=== PATIENT | female | born 1980 | race Caucasian/White ===

== ENCOUNTER 2018-05-14 08:55 | Inpatient (IN) | payer MEDICAID, OTHER ==
[~2018-05-14 08:55] MED LIST: Bupivacaine/Epinephrine 0.25% 30 ML VIAL ONE
[2018-05-14 09:39] VITALS: BMI 32.3
[2018-05-14 09:55] LABS: Amnisure Internal Control QC ACCEPTABLE (ACCEPTABLE)
[2018-05-14 09:57] LABS: Amnisure Test RUPTURE DETECTED (No Rupture)
[2018-05-14] MEDS ORDERED: Misoprostol 200 MCG TAB PR PRN (10:13)
[2018-05-14] MEDS ORDERED: NS / Oxytocin 40 units/1000ml 1,000 ML IV PRN (10:13)
[2018-05-14] MEDS ORDERED: Promethazine HCl 25 MG/ML VIAL IM PRN ×2 (10:13→14:56)
[2018-05-14] MEDS ORDERED: Lidocaine 1% (PF) 30 ML VIAL SC PRN (10:13)
[2018-05-14] MEDS ORDERED: Butorphanol Tartrate 1 MG/ML VIAL SLOW IVP PRN (10:13)
[2018-05-14] MEDS ORDERED: Ondansetron PF 4 MG/2 ML Vial IVP PRN ×3 (10:13→17:35)
[2018-05-14] MEDS ORDERED: HYDROcodone/Acetaminophen 5/325 mg Tablet PO PRN ×2 (10:13)
[2018-05-14] MEDS ORDERED: Docusate 100 MG CAP PO PRN (10:13)
[2018-05-14] MEDS ORDERED: Ibuprofen 800 MG TAB PO PRN (10:13)
[2018-05-14] MEDS ORDERED: Diphenoxylate HCl/Atropine Tablet PO PRN ×2 (10:13)
[2018-05-14] MEDS ORDERED: Acetaminophen 500 MG TAB PO PRN (10:13)
[2018-05-14] MEDS: Lactated Ringer's 1,000 ML IV SCH ×2 (10:20→14:54)
[2018-05-14 10:35] LABS: Hemoglobin 13.1 g/dL (12.0-16.0); Mean Corpuscular HGB CONC 34.1 g/dL (32.0-36.0); Platelet Count 212 thou/uL (130-400); RBC Distribution Width 12.2 % (11.5-14.5); Red Blood Cell (RBC) Count 4.22 mill/uL (4.20-5.40); White Blood Cell (WBC) Count 11.4 thou/uL (4.8-10.8)
[2018-05-14 11:16] LABS: Syphilis Antibody Nonreactive (Nonreactive); Syphilis Antibody Index 0.04 S/CO (<1.00 Non-Reactive)
[2018-05-14 11:24] LABS: HBSAg Index 0.18 S/CO (0-0.99); Hep B Surf Ag Non-Reactive S/CO (NonReactive)
[2018-05-14] MEDS ORDERED: NS w/ Oxytocin 10 units 500 ML ONE (13:30)
[2018-05-14] MEDS ORDERED: Fentanyl 4 mcg/Bup 0.1% Cadd 100 ML ONE (13:58)
[2018-05-14] MEDS ORDERED: ePHEDrine/0.9% NaCl/PF SYRINGE 50 mg/10 ml SLOW IVP PRN (14:56)
[2018-05-14] MEDS ORDERED: Eucerin (Mineral Oil/Petrolatum,White) 30 gm Jar TOP PRN (14:56)
[2018-05-14] MEDS ORDERED: Lactated Ringer's 500 ML IV PRN (14:56)
[2018-05-14] MEDS ORDERED: Acetaminophen 325 MG TAB PO PRN (14:56)
[2018-05-14] MEDS ORDERED: Naloxone HCl 0.4 mg/ml Vial IVP PRN ×2 (14:56)
[2018-05-14] MEDS ORDERED: diphenhydrAMINE 50 MG/ML VIAL IVP PRN (14:56)
[2018-05-14] MEDS ORDERED: Fentanyl 4 mcg/Bupivacaine 0.1% Cassette 100 ML EPIDURAL SCH (15:00)
[2018-05-14] MEDS ORDERED: Communication Order-Pharmacy FS SCH (15:00)
[2018-05-14] MEDS ORDERED: hydrALAZINE 20 MG/ML VIAL ONE (15:20)
[2018-05-14] MEDS: NS / Oxytocin 40 units/1000ml 1,000 ML IV SCH ×2 (17:05→18:34)
[2018-05-14] MEDS ORDERED: Lanolin Ointment 7 GM TUBE TOP PRN (17:35)
[2018-05-14] MEDS ORDERED: Benzocaine/Menthol 20-0.5% 60 ML CAN TOP PRN (17:35)
[2018-05-14] MEDS ORDERED: Preparation H Ointment 28 GM TUBE PR PRN (17:35)
[2018-05-14] MEDS ORDERED: diphenhydrAMINE 25 MG CAP PO PRN (17:35)
[2018-05-14] MEDS ORDERED: Zolpidem Tartrate 5 MG TAB PO PRN (17:35)
[2018-05-14] MEDS ORDERED: Misoprostol 200 MCG TAB VAG PRN (17:35)
[2018-05-14] MEDS ORDERED: Milk Of Magnesia 30 ML UDCUP PO PRN (17:35)
[2018-05-14] MEDS ORDERED: Acetaminophen/Codeine 30-300mg Tablet PO PRN ×2 (17:35)
[2018-05-14] MEDS ORDERED: Bisacodyl 10 MG SUPP PR PRN (17:35)
[2018-05-14] MEDS: Ampicillin/Sulbactam 3 GM in Sodium Chloride 0.9% 100 ML IVPB SCH (18:45)
[2018-05-14] MEDS ORDERED: Acetaminophen 325 MG TAB PO SCH (20:15)
[2018-05-14] MEDS: Labetalol 100 MG TAB PO SCH (21:18)
[2018-05-14] MEDS: Docusate Calcium (SURFAK) 240 MG CAP PO SCH (21:19)
[2018-05-14] MEDS: Ibuprofen 800 MG TAB PO SCH (21:20)
[2018-05-15] MEDS: Ampicillin/Sulbactam 3 GM in Sodium Chloride 0.9% 100 ML IVPB SCH (00:30)
[2018-05-15] MEDS ORDERED: Sodium Chloride 0.9% 10 ML ONE (04:32)
[2018-05-15] MEDS: Ibuprofen 800 MG TAB PO SCH ×2 (05:01→13:22)
[2018-05-15 06:59] LABS: Hemoglobin 10.8 g/dL (12.0-16.0); Mean Corpuscular HGB CONC 33.3 g/dL (32.0-36.0); Mean Corpuscular Hemoglobin 30.9 pg (27.0-31.0); Mean Corpuscular Volume 92.7 fL (78.0-98.0); Mean Platelet Volume 9.1 fL (7.4-10.4); Platelet Count 188 thou/uL (130-400); RBC Distribution Width 12.2 % (11.5-14.5); Red Blood Cell (RBC) Count 3.49 mill/uL (4.20-5.40); White Blood Cell (WBC) Count 12.3 thou/uL (4.8-10.8)
[2018-05-15] MEDS ORDERED: Prenatal Vitamin 1 TAB PO SCH (09:00)
[2018-05-15] MEDS ORDERED: Adacel (T-DAP) 0.5 ML SYRINGE IM ONE (09:00)
[2018-05-15] MEDS: Labetalol 100 MG TAB PO SCH (09:42)
[2018-05-15] MEDS: Docusate Calcium (SURFAK) 240 MG CAP PO SCH (09:42)
[2018-05-15] MEDS: Ferrous Sulfate 325 MG TAB PO SCH ×2 (09:43→18:26)
[2018-05-15 17:33] VITALS: BP 132/81; TEMP 97.6
== END 2018-05-15 18:45 | disposition home or self-care (01) | DRG 807 ==
LOC: L&D/OP 08:55 → L&D 10:08 → 3SW 20:27
PROVIDERS: ADMIT Obstetrics & Gynecology; ATTEND Obstetrics & Gynecology
PROC: 10E0XZZ Delivery of Products of Conception, External Approach (ICD-10-PCS; principal; 2018-05-14)
PROC: 10D17Z9 Manual Extraction of Products of Conception, Retained, Via Natural or Artificial Opening (ICD-10-PCS; 2018-05-14)
PROC: 0W8NXZZ Division of Female Perineum, External Approach (ICD-10-PCS; 2018-05-14)
DX: O99.334 Smoking (tobacco) complicating childbirth (principal); Z37.0 Single live birth; O73.0 Retained placenta without hemorrhage; O76 Abnormality in fetal heart rate and rhythm complicating labor and delivery; F17.210 Nicotine dependence, cigarettes, uncomplicated; Z3A.39 39 weeks gestation of pregnancy
CPT/HCPCS: 36415; 84112; 85027; 85461; 86780; 86850; 86870; 86900; 86901; 87340; 90384; 90471; 90732; 96372; 99285; G0009; J0295; J0360; J2001; J2405; J7050